=== PATIENT | male | born 1980 | race Two or more races ===

== ENCOUNTER 2017-11-24 09:44 | Emergency (ER) | payer OTHER ==
[2017-11-24 10:03] LABS: ADD MAN DIFF? NO
[2017-11-24 10:04] LABS: BASO # 0.1 x10^3/uL (0.0-0.2); BASO % 1 % (0-3); EOS # 0.1 x10^3/uL (0.0-0.7); EOS % 1 % (0-3); HEMATOCRIT 42.5 % (39.0-53.0); HEMOGLOBIN 14.7 g/dL (13.0-17.5); LYMPH # 3.4 x10^3/uL (1.0-4.8); LYMPH % 28 % (24-48); MEAN CORPUSCULAR HEMOGLOBIN 30 pg (25-35); MEAN CORPUSCULAR HGB CONC 35 g/dL (31-37); MEAN CORPUSCULAR VOLUME 88 fL (79-100); MONO # 0.8 x10^3/uL (0.0-1.1); MONO % 7 % (0-9); NEUT # 7.8 x10^3uL (1.8-7.7); NEUT % 64 % (31-73); PLATELET COUNT 354 x10^3/uL (140-400); RED BLOOD COUNT 4.84 x10^6/uL (4.30-5.70); RED CELL DISTRIBUTION WIDTH 13.7 % (11.5-14.5); WHITE BLOOD COUNT 12.1 x10^3/uL (4.0-11.0)
[2017-11-24 10:20] LABS: ANION GAP 9 (6-14); BLOOD UREA NITROGEN 18 mg/dL (8-26); CALCIUM 8.8 mg/dL (8.5-10.1); CARBON DIOXIDE 27 mmol/L (21-32); CHLORIDE 105 mmol/L (98-107); CREATININE 0.9 mg/dL (0.7-1.3); GFR 94.4; GLUCOSE 134 mg/dL (70-99); POTASSIUM 3.8 mmol/L (3.5-5.1); SODIUM 141 mmol/L (136-145)
[2017-11-24] MEDS ORDERED: MORPHINE SULFATE 4 MG/ML DISP.SYRIN. (10:22)
[2017-11-24 10:26] LABS: ALBUMIN 3.8 g/dL (3.4-5.0); ALK PHOS 234 U/L (46-116); ALT (SGPT) 43 U/L (16-63); AST (SGOT) 26 U/L (15-37); DIRECT BILIRUBIN 0.1 mg/dL (0.0-0.2); LIPASE 58 U/L (73-393); TOTAL BILIRUBIN 0.3 mg/dL (0.2-1.0); TOTAL PROTEIN 7.6 g/dL (6.4-8.2)
[2017-11-24 10:28] LABS: TROPONINI < 0.017 ng/mL (0.000-0.055)
[2017-11-24] MEDS: ONDANSETRON PF 4 MG/2 ML VIAL. IV (10:29)
[2017-11-24] MEDS: MORPHINE SULFATE 4 MG/ML DISP.SYRIN. IV ×2 (10:29→11:40)
[2017-11-24] MEDS: IV NORMAL SALINE 1000ML BAG 1,000 ML IV (10:30)
[2017-11-24] MEDS ORDERED: MORPHINE SULFATE 2 MG/ML DISP.SYRIN. IV (10:30)
[2017-11-24] MEDS ORDERED: CONTRAST GIVEN MC (11:00)
[2017-11-24] MEDS: METOCLOPRAMIDE HCL 10 MG/2 ML VIAL. IV (11:30)
[2017-11-24] MEDS: IOHEXOL 300 MG/ML 100ML VIAL. IV (11:57)
[2017-11-24 13:20] LABS: BILIRUBIN,URINE NEGATIVE (NEG); COLOR,URINE RED; NITRITE,URINE NEGATIVE (NEG); PH,URINE 6.5; PROTEIN,URINE NEGATIVE (NEG-TRACE); UROBILINOGEN,URINE 0.2 mg/dL (0.2 mg/dL)
[2017-11-24 13:21] LABS: CLARITY,URINE BLOODY; GLUCOSE,URINE NEGATIVE (NEG)
[2017-11-24 13:23] LABS: BACTERIA,URINE 0 /HPF (0-FEW); RBC,URINE TNTC /HPF (0-2); WBC,URINE 0 /HPF (0-4)
== END 2017-11-24 13:54 | disposition home or self-care (01) ==
LOC: ER 09:44
DX: N20.0 Calculus of kidney (principal)
CPT/HCPCS: 36415; 74177; 80048; 80076; 81001; 83690; 84484; 85025; 96361; 96374; 96375; 96376; 99285-25; J2270; J2405; J2765; J7030; Q9967